=== PATIENT | female | born 1965 | race Two or more races ===

== ENCOUNTER → 2024-07-09 | Outpatient (CLI) | payer MEDICAID, SELFPAY ==
--- NOTE | 2024-07-09 13:00 | XR_ITS ---
Examination: Breast ultrasound, unilateral, right complete Date and time of exam: July 09, 2024 1342 hours INDICATIONS: Mammogram August 14, 2023 4:00 nodule 8 mm, ultrasound right breast August 14, 2023 4:00 nodule 9 mm 9:00 nodule 4 mm Technique: Real-time navarro scale ultrasonographic imaging performed right breast including all 4 quadrants as well as nipple retroareolar and axillary region. Findings: 9:00 nodule circumscribed 5 x 2 x 5 mm IMPRESSION: BI-RADS Category 2: Benign findings
--- NOTE | 2024-07-09 13:30 | XR_ITS ---
Examination: Diagnostic digital mammography, unilateral, right Computer aided detection 3-D breast Tomosynthesis, unilateral Date and time of exam: July 09, 2024 1357 hours INDICATIONS: Mammogram May 05, 2023 4:00 oval mass 8 mm Technique: Nonmagnified MLO, CC views of the right breast have been obtained, reconstructed from 3-D Tomosynthesis images. R2 computer aided detection program utilized for evaluation of suspicious masses and/or abnormal calcifications. 3-D Tomosynthesis images obtained. Findings: Scattered areas of fibroglandular density 9:00 circumscribed nodule 6 mm Impression: BI-RADS category 3: Probably benign findings One additional 6 month right mammogram follow-up is needed to document stability of 9:00 nodule described above
== END | disposition home or self-care (01) ==
PROVIDERS: PCP Nurse Practitioner; Referring Provider Nurse Practitioner; Visit Provider Nurse Practitioner
DX: R92.331 Mammographic heterogeneous density, right breast (principal); N63.15 Unspecified lump in the right breast, overlapping quadrants
CPT/HCPCS: 76641; 77061; 77065; G0279